=== PATIENT | male | born 1975 | race Caucasian/White ===

== ENCOUNTER → 2017-03-11 | Outpatient (CLI) | payer BC ==
[~2017-03-11] MED LIST: ASPI-781 PO; LAMO100T83 PO
--- NOTE | 2017-03-11 15:59 | RADRPT ---
PROCEDURE: XR Left Hip and pelvis. CLINICAL INDICATION: Left hip pain. Pelvic pain. TECHNIQUE: Two views. Frontal pelvis and lateral left hip. COMPARISON: 03/11/2016. FINDINGS: There has been open reduction and internal fixation of the right femur with a chante in the shaft and a locking screw proximally. There is a left hip total arthroplasty which appears satisfactory. Ther e is no fracture, dislocation, or loosening. There is no lytic or blastic lesion. The soft tissues are unremarkable. The upper pelvis is not included on the image. IMPRESSION: 1. Satisfactory postoperative appearance of the proximal right femur and left hip. RPTAT: QQ .Jewel Cm MD, MD Date Time Electronically viewed and signed by .Jewel Cm MD, MD on 03/11/2017 15:58 .R/
--- NOTE | 2017-03-11 16:06 | PN ---
Date/Time of Note Date/Time of Note DATE: 03/11/17 TIME: 16:01 Outpatient Progress Note Chief Complaint Annual follow-up status post left total hip replacement HPI 41-year-old male presents today for annual follow-up status post left total hip replacement performed on 10/04/2015. Patient was last seen on 03/11/2016. 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 Patient does have concerns however, as of the past 2 months he has been experiencing tingling, weakness and burning sensation to the lateral thigh/ buttock region and most recently to the groin region. At times he has complaints of weakness although he states that his strength is normal. He feels that he is unable to move his leg as he feels that it is weak but when he test his strength there is no limitation. Denies any falls. No supportive measures taken thus far. Review of Systems Const: No Fever, no chills, no Fatigue, normal appetite, no diaphoresis. Resp: No SOB, no wheezing, no chest pain. CV: No chest pain, no palpitaions, no VERNON. Physical Exam Blood pressure is 127/74, temperature is 98, pulse is 87, respiratory rate is 12, height is 5 foot 3 inches, weight is 140 pounds. General Appearance: well-developed, well-nourished, in no acute distress. Left hip: Patient has full range of motion with flexion, extension, abduction and adduction. 5/5 strength on resistance with flexion, extension, abduction and adduction. No tenderness to palpation. Normal sensory examination to light touch. No calf pain. Gait is normal and nonantalgic. Overall normal examination. Imaging X-ray of the left hip performed on 03/11/2017 showing all components appearing well aligned, attached and integrated to the bone. No signs of any lucency between metal and bone. Allergies Coded Allergies: No Known Allergy (Unverified , 10/03/15) Assessment/Plan * Normal x-ray on exam. * Normal physical examination * Symptoms seem to be neuropathic in etiology. Trial of gabapentin 300 mg 1 tab p.o. twice daily #60 provided for patient today. Patient advised to take 1 tablet for the first 3-4 days and if there is no significant side effects such as altered mental state, he may continue with twice a day. If symptoms improve patient was advised to follow-up with primary care for ongoing refills or with this office. If nerve symptoms continue, he was made aware that possible nerve conduction studies may be warranted to determine if there is any nerve injury. * Continue activities of daily living but at times of flareups, activity modifications were recommended. Anti-inflammatories as needed. * Follow-up as needed. Patient does have normal physical examination with no limitations or weakness. Medications Home Meds Active Scripts Aspirin* (Ecotrin*) 325 Mg Tabec, 325 MG PO BID for 45 Days Prov:ELIZABETH LUIS 10/07/15 Reported Medications Lamotrigine* (Lamictal*) 100 Mg Tablet, 200 MG PO DAILY, TAB 10/03/15 DEVAN VALLEJO PA-C March 11, 2017 16:06
== END | disposition home or self-care (01) ==
LOC: HKI 15:28
DX: Z47.89 Encounter for other orthopedic aftercare (principal); Z96.642 Presence of left artificial hip joint
CPT/HCPCS: 73502; G0463

== ENCOUNTER → 2019-01-30 | Outpatient (CLI) | payer BC ==
--- NOTE | 2019-01-30 17:38 | CONS ---
Assessment/Plan Assessment/Plan Hospital Course (Demo Recall) 43-year-old male 3.5 years status post anterior left total hip arthroplasty who presents with over a year of increasing groin and anterior femur pain. He does not have any signs or symptoms of infection. Concern for infection is low however still needs to be ruled out. Radiographs and symptoms are more concerning for aseptic loosening and/or possible stress fracture of the femur. At this time we will begin to rule out infection by obtaining a CBC with differential, ESR, CRP. If this is negative a three-phase bone scan will be ordered. The patient does not need to return to clinic for this order. He will be called with the results of his lab tests and the order will be placed and he will follow-up after the bone scan. However, if the workup for infection is positive he will return to clinic for further discussion regarding the next steps. The patient was advised if he has significant increase in pain with weightbearing he should become touchdown weightbearing and use crutches. Consultation Date/Type/Reason Admit Date/Time Date of Consultation: Jan 30, 2019 Reason for Consultation Left total hip pain Date/Time of Note DATE: 01/30/19 TIME: 17:25 Hx of Present Illness This is a 43-year-old male who presents to clinic today for left hip and groin pain. He is status post left total hip arthroplasty in [place] [address] Toro. He had an anterior approach. Patient states he initially did very well. However in 2017 he started to have increasing groin pain. It waxed and waned. However currently he is in 8/10 pain the pain is sharp and stabbing. It is in the groin and down the quadriceps. He is limping. Not using any gait aid. Nothing seems to make it better. The pain is a constant pain but is worsened with weightbearing and ambulation. Denies any fevers or chills. D enies any wound complications from surgery. Denies numbness and tingling. Denies any back pain. Patient denies fever, chills, shortness of breath, chest pain, nausea/vomiting, constipation, diarrhea, numbness, and tingling. Past Medical History Concussion Right femur fracture 2002 Home Meds Active Scripts Aspirin* (Ecotrin*) 325 Mg Tabec, 325 MG PO BID for 45 Days Prov:ELIZABETH LUIS 10/07/15 Reported Medications Lamotrigine* (Lamictal*) 100 Mg Tablet, 200 MG PO DAILY, TAB 10/03/15 Allergies: Coded Allergies: No Known Allergy (Unverified , 10/03/15) Past Surgical History IMN right femur fracture 2002 Left total hip arthroplasty October [address] Dr. Toro Family History Significant Family History: no pertinent family hx Social History Alcohol Use: heavy (1 drink a night) Smoking Status: Current some day smoker (Marijuana) Drug Use: marijuana Exam/Review of Systems Exam Vitals Weight: 140 pounds Height: 5 foot 3 inches Temperature: 98.4 Heart Rate: 89 Blood Pressure: 134/106 Respiratory Rate: 12 Exam General: Awake, alert, in no acute distress, pleasant and cooperative Heart: regular rhythm Lungs: breathing comfortably, no tachypnea or dyspnea Musculoskeletal: Well developed male in no apparent distress. Gait demonstrates antalgic components and no short leg component. Standing, the pelvis is level and supine there is no true leg length discrepancy. No tenderness to palpation over the trochanteric bursa or IT band. ----- Range of motion: Flexion: 120 Extension: 0 Internal rotation: 20 External rotation: 45 Abduction: 45 Adduction: 10 ----- Sitting there is no pelvic obliquity. Pain at the extremes of motion of the affected hip. Skin was intact throughout both lower extremities. Sensation intact to light touch in a sural, saphenous, deep peroneal, superficial peroneal, medial and lateral plantar nerve distribution. Neurovascular exam showed 5/5 strength in the abductors, quads, EHL/tibialis anterior/gastroc. Normal and symmetrical pulses were palpated in both the dorsalis pedis and posterior tibial arteries. There is no sign of venous stasis. Imaging Imaging Xrays obtained in clinic today and personally reviewed by myself: AP pelvis and AP/Lat of the left hip demonstrate hip s/p RINKU with hip reduced. Acetabular component is in good position. The femoral component is in good alignment. However compared to previous x-rays there is significant periosteal and cortical reaction around the stem. There is a pedestal. These findings are concerning for loosening even though there are no clearly identifiable diverging lucent lines. This reaction can also be seen in chronic stress fracture. No signs of wear, osteolysis, or fracture. ZHANNA PATINO MD Jan 30, 2019 17:37
--- NOTE | 2019-01-31 17:30 | RADRPT ---
PROCEDURE: XR Left Hip and pelvis. CLINICAL INDICATION: Left hip pain. Pelvic pain. Postop. TECHNIQUE: Three views. Frontal pelvis. Frontal and lateral left hip. COMPARISON: 03/11/2016. FINDINGS: There is no fracture or dislocation. The soft tissues are normal. There is a left hip total arthroplasty which appears satisfactory. There is a chante in the shaft of the right femur and a locking screw proximally extending through the r ight lesser trochanter. There is no lytic or blastic lesion. The pelvis is otherwise grossly normal. IMPRESSION: 1. Satisfactory postoperative appearance of the left hip. 2. Satisfactory postoperative appearance of the proximal right femur. 3. Otherwise unremarkable unremarkable study. RPTAT: QQ .Jewel Cm MD, MD Date Time Electronically viewed and signed by .Jewel Cm MD, on 01/31/2019 17:30 .R/
== END | disposition home or self-care (01) ==
LOC: HKI 15:51
PROVIDERS: ATTEND Orthopaedic Surgery Adult Reconstructive Orthopaedic Surgery
DX: M25.552 Pain in left hip (principal); Z96.642 Presence of left artificial hip joint; Z79.82 Long term (current) use of aspirin
CPT/HCPCS: 73502; G0463

== ENCOUNTER → 2019-02-09 | Outpatient (CLI) | payer BC | END | disposition home or self-care (01) | LOC: NUC 08:53 | PROVIDERS: ATTEND Orthopaedic Surgery Adult Reconstructive Orthopaedic Surgery | DX: M25.552 Pain in left hip (principal) | CPT/HCPCS: 78315; A9503 ==

== ENCOUNTER → 2019-02-20 | Outpatient (CLI) | payer BC ==
--- NOTE | 2019-02-20 16:31 | CONS ---
Consult Date/Type/Reason Admit Date/Time Initial Consult Date Date/Time of Note DATE: 02/20/19 TIME: 16:23 Subjective 43-year-old male follows up early today for his left hip secondary to acute increase in pain this past weekend. He was currently being worked up for aseptic loosening of his left total hip arthroplasty. Infection workup was negative. Bone scan and x-rays are consistent with loosening of the femoral stem. This past Wednesday he was not doing anything in particular but his groin and femur pain significantly increased to the point where he had difficulty bearing full weight. He went to the emergency department at [facility] to make sure there was not anything catastrophically wrong. There were no acute changes and is discharged home with pain medication. He started to use a cane. It is better today but the pain is much more persistent than it was during our first visit. Other than those changes there have been no further changes in his signs or symptoms. Objective Exam General: Awake, alert, in no acute distress, pleasant and cooperative Heart: regular rhythm Lungs: breathing comfortably, no tachypnea or dyspnea Musculoskeletal: Well developed male in no apparent distress. Gait demonstrates antalgic components and no short leg component. Standing, the pelvis is level and supine there is no true leg length discrepancy. No tenderness to palpation over the trochanteric bursa or IT band. ----- Range of motion: Flexion: 120 Extension: 0 Internal rotation: 20 External rotation: 45 Abduction: 45 Adduction: 10 ----- Sitting there is no pelvic obliquity. Pain at the extremes of motion of the aff ected hip. Skin was intact throughout both lower extremities. Sensation intact to light touch in a sural, saphenous, deep peroneal, superficial peroneal, medial and lateral plantar nerve distribution. Neurovascular exam showed 5/5 strength in the abductors, quads, EHL/tibialis anterior/gastroc. Normal and symmetrical pulses were palpated in both the dorsalis pedis and posterior tibial arteries. There is no sign of venous stasis. Results/Medications Home Meds Active Scripts Aspirin* (Ecotrin*) 325 Mg Tabec, 325 MG PO BID for 45 Days Prov:ELIZABETH LUIS 10/07/15 Reported Medications Lamotrigine* (Lamictal*) 100 Mg Tablet, 200 MG PO DAILY, TAB 12/3/15 Imaging Xrays obtained in clinic today and personally reviewed by myself: AP pelvis and AP/Lat of the left hip demonstrate hip s/p RINKU with hip reduced. Acetabular component is in good position. The femoral component is in varus alignment. Compared to immediate previous x-rays there has been no change. However compared to previous x-rays years ago there is significant periosteal and cortical reaction around the stem. There is a pedestal. These findings are concerning for loosening even though there are no clearly identifiable diverging lucent lines. This reaction can also be seen in chronic stress fracture. No signs of wear, osteolysis, or fracture. 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 There are no acute changes on x-ray. At this time he is having significantly more pain. We did discuss revision surgery today including possible need for extended trochanteric osteotomy. In addition to the standard risks for total hip arthroplasty we discussed other risks specific to revision surgery including increased risk of heterotopic bone ossification, dislocation/instability, infection, leg length discrepancy, injury to blood vessels and nerves, fracture. He understood these and wished to proceed with revision surgery. Plan: Plan for revision surgery Continue using gait aid. [place] () #30. patient instructed to use sparingly. Cures report was ran and was negative for any concern for narcotic or opiate abuse. preop clearance Follow-up for preop ZHANNA PATINO MD Feb 20, 2019 16:31
--- NOTE | 2019-02-21 16:22 | RADRPT ---
PROCEDURE: XR Left hip and pelvis. CLINICAL INDICATION: Left hip pain and pelvic pain. TECHNIQUE: 3 views. Frontal pelvis. Frontal and lateral left hip. COMPARISON: 01/30/2019. FINDINGS: There is no fracture or dislocation. The soft tissues are normal. There is a left hip total arthroplasty which appears satisfactory. There is a chante in the shaft of the right femur and a locking screw proximally extending through the r ight lesser trochanter. There is no lytic or blastic lesion. The pelvis is otherwise grossly normal. IMPRESSION: 1. Satisfactory postoperative appearance of the left hip. 2. Satisfactory postoperative appearance of the proximal right femur. 3. Otherwise unremarkable unremarkable study. 4. No change from 01/30/2019. RPTAT: QQ .Jewel Cm MD, Date Time Electronically viewed and signed by .Jewel Cm MD, on 02/21/2019 16:22 .R/
== END | disposition home or self-care (01) ==
LOC: HKI 13:46
PROVIDERS: ATTEND Orthopaedic Surgery Adult Reconstructive Orthopaedic Surgery
DX: Z47.1 Aftercare following joint replacement surgery (principal); Z96.642 Presence of left artificial hip joint
CPT/HCPCS: 73502; G0463

== ENCOUNTER → 2019-03-20 | Outpatient (CLI) | payer BC ==
--- NOTE | 2019-03-20 15:12 | CONS ---
Consult Date/Type/Reason Admit Date/Time Initial Consult Date Date/Time of Note DATE: 03/20/19 TIME: 15:05 Subjective 43-year-old male follows up today for preoperative appointment for left total hip arthroplasty revision. 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 His symptoms have increased in intensity but has not changed in location or characteristic. Denies numbness and tingling. Denies fevers and chills. Objective Vitals Weight: 140 pounds Height: 5 foot 3 inches Temperature: 90.6 Heart Rate: 70 Blood Pressure: 140/73 Respiratory Rate: 12 Exam General: Awake, alert, in no acute distress, pleasant and cooperative Heart: regular rhythm Lungs: breathing comfortably, no tachypnea or dyspnea Musculoskeletal: Well developed male in no apparent distress. Gait demonstrates antalgic components and no short leg component. Standing, the pelvis is level and supine there is no true leg length discrepancy. No tenderness to palpation over the trochanteric bursa or IT band. ----- Range of motion: Flexion: 120 Extension: 0 Internal rotation: 20 External rotation: 45 Abduction: 45 Adduction: 10 ----- Sitting there is no pelvic obliquity. Pain at the extremes of motion of the affected hip. Skin was intact throughout both lower extremities. Sensation intact to light touch in a sural, saphenous, deep peroneal, superficial peroneal, medial and lateral plantar nerve distribution. Neurovascular exam showed 5/5 strength in the abductors, quads, EHL/tibialis anterior/gastroc. Normal and symmetrical pulses were palpated in both the dorsalis pedis and posterior tibial arteries. There is no sign of venous stasis. Results/Medications Home Meds Active Scripts Aspirin* (Ecotrin*) 325 Mg Tabec, 325 MG PO BID for 45 Days Prov:ELIZABETH LUIS 10/07/15 Reported Medications Lamotrigine* (Lamictal*) 100 Mg Tablet, 200 MG PO DAILY, TAB 10/03/15 Assessment/Plan Hospital Course (Demo Recall) The patient has aseptic loosening of the femoral component of the left total hip arthroplasty. Significant amount of time was spent discussing revision surgery including increased risk of infection, instability, neurovascular injury, fracture, and other complications. Was also discussed that he will likely need an extended greater trochanteric osteotomy to remove the femoral prosthesis. Discussed that this will likely change his weightbearing status postoperatively. Medical Clearance pending. ----- A lengthy discussion was held, where the patient was told that if and when the symptoms are intolerable, elective revision total hip replacement should be considered. The operative procedure was explained using diagrams and/or three-dimensional models. The rehabilitation, the potential risks, benefits and alternatives were discussed at length. Specific risks discussed included but were not limited to excessive blood loss and the need for transfusion and therefore the risk of transmissible disease or transfusion reaction, deep infection and the potential need for repetitive debridements, implant removal, long-term antibiotic therapy, possibly requiring deep venous access, leg-length discrepancy, dislocation, possibly recurrent, with the need for closed versus open reduction, bracing, femoral or acetabular fracture and the need for further surgery for fixation, neurovascular injury with temporary or permanent numbness, tingling, weakness or paralysis, deep venous thrombosis, pulmonary embolism and , persistent pain, weakness, or limp, late aseptic loosening and the need for revision, polyethylene wear-induced osteolysis and related problems, and finally, a wide variety of unanticipated medical problems. The opportunity to ask questions and address any concerns was provided. The patient would like to proceed with scheduling. Face to Face Evaluation For Home Health Care: This is to certify that after date of planned surgery patient will be in need of intermittent care home care, physical therapy and/or occupational therapy as patient will be home bound. This patient is under my care and I have authorized the services on this plan of care and will periodically review the plan. Plan: Left Revision RINKU. If no ETO is needed, will plan on S-ROM. If ETO is needed, Depuy Reclaim VTE risk stratification: Average VTE prophylaxis: ASA 81 mg twice daily x6 weeks Diabetes management: None Pain control: Standard Telemetry: No MRSA: Pending ZHANNA PATINO MD March 20, 2019 15:12
== END | disposition home or self-care (01) ==
LOC: HKI 13:13
PROVIDERS: ATTEND Orthopaedic Surgery Adult Reconstructive Orthopaedic Surgery
DX: Z01.818 Encounter for other preprocedural examination (principal); T84.031A Mechanical loosening of internal left hip prosthetic joint, initial encounter; Y83.8 Other surgical procedures as the cause of abnormal reaction of the patient, or of later complication, without mention of misadventure at the time of the procedure
CPT/HCPCS: G0463

== ENCOUNTER 2019-03-31 08:00 | Inpatient (IN) | payer BC ==
[~2019-03-31] VITALS: Ht 160 cm; Wt 65.4 kg
[~2019-03-31 08:00] MED LIST changes: +ACETAMINOPHEN 500 MG TAB PO ONE; +CEFAZOLIN 2 GM/50 ML (PMX) 50 ML IVPB ONE; +CELECOXIB 200 MG CAP PO ONE; +GABAPENTIN 300 MG CAP PO ONE; +LACTATED RINGER'S 1,000 ML IV SCH; +LANSOPRAZOLE 30 MG CAP PO ONE; +ONDANSETRON 4 MG INJ IV ONE; +TRANEXAMIC ACID 1GM/100ML(PMX) 100 ML AT CLOSING IVPB ONE; +TRANEXAMIC ACID 1GM/100ML(PMX) 100 ML PRE-OP IVPB ONE
[2019-04-18] VITALS (26 sets, daily range): BP systolic 101–133; BP diastolic 54–84; PULSE 65–92; RESP 13–21; Ht 160 cm; Wt 65.4 kg
[2019-04-18] MEDS ORDERED: ACETAMINOPHEN 500 MG TAB PO ONE (06:00)
[2019-04-18] MEDS ORDERED: ONDANSETRON 4 MG INJ IV ONE (06:00)
[2019-04-18] MEDS ORDERED: CEFAZOLIN 2 GM/50 ML (PMX) 50 ML IVPB ONE (06:00)
[2019-04-18] MEDS ORDERED: TRANEXAMIC ACID 1GM/100ML(PMX) 100 ML PRE-OP IVPB ONE (06:00)
[2019-04-18] MEDS ORDERED: LACTATED RINGER'S 1,000 ML IV SCH (06:00)
[2019-04-18] MEDS ORDERED: GABAPENTIN 300 MG CAP PO ONE (06:00)
[2019-04-18] MEDS ORDERED: CELECOXIB 200 MG CAP PO ONE (06:00)
[2019-04-18] MEDS ORDERED: LANSOPRAZOLE 30 MG CAP PO ONE (06:00)
[2019-04-18] MEDS ORDERED: DESFLURANE 15 MIN ONE (07:00)
--- NOTE | 2019-04-18 07:09 | HPN ---
Date/Time of Note Date/Time of Note DATE: 04/18/19 TIME: 07:08 Interval H&P Admission Note Pt. seen H&P reviewed: No system changes Patient denies fever, chills, shortness of breath, chest pain, nausea/vomiting, constipation, diarrhea, numbness, and tingling. MUSCULOSKELETAL: Left extremity Skin intact. Well-healed scar over the proximal anterior lateral thigh. Sensation intact to light touch in a sural, saphenous, deep peroneal, superficial peroneal, medial and lateral plantar nerve distribution. Motor is intact, patient able to dorsiflex and plantarflex ankle and extend and flex great toe. Dorsalis Pedis pulse +2, Brisk capillary refill. Compartments are soft. Calves non-tender to palpation bilaterally. ZHANNA PATINO MD Apr 18, 2019 07:09
[2019-04-18] MEDS ORDERED: TOBRAMYCIN 1.2 GM POWDER ONE (07:11)
[2019-04-18] MEDS ORDERED: VANCOMYCIN 1 GM INJ ONE (07:11)
--- NOTE | 2019-04-18 07:33 | PREAC ---
Date/Time of Note Date/Time of Note DATE: 04/18/19 TIME: 07:32 Anesthesia Eval and Record Evaluation Time Pre-Procedure Interview DATE: 04/18/19 TIME: 07:32 Age 43 Sex male NPO: 8 hrs Preoperative diagnosis total left hip revision Planned procedure total left hip revision Past Medical History Past Medical History: Includes Psych: Bipolar Surgery & Anesthesia Issues No known issue Meds Anticoagulation: No Beta Rebeca within 24 hr: No Reason Beta Rebeca not given: Pt. not on B-Rebeca Reported Medications Lamotrigine* (Lamictal*) 100 Mg Tablet, 200 MG PO DAILY, TAB 10/03/15 Discontinued Scripts Aspirin* (Ecotrin*) 325 Mg Tabec, 325 MG PO BID for 45 Days Prov:LUISELIZABETH ZENDEJAS 10/07/15 Current Medications Lactated Ringer's 1,000 ml @ 125 mls/hr Q8H IV Last administered on 04/18/19at 06:37; Admin Dose 125 MLS/HR; Start 04/18/19 at 06:00; Stop 04/18/19 at 13:59 Ropivacaine/ Clonidine HCl/ Epinephrine/ Ketorolac Tromethamine/ Sodium Chloride INTRA-OP INJ ; Start 04/18/19 at 06:00; Stop 04/18/19 at 18:00 Meds reviewed: Yes Allergies Coded Allergies: pecan nut (Verified Allergy, Unknown, sob,rash,throat swelling, 04/18/19) walnut (Verified Allergy, Unknown, sob,rash,throat swelling, 04/18/19) Allergies Reviewed: Yes Labs/Studies Labs Reviewed: Reviewed by anesthesiologist Blood Bank Test 04/18/19 06:19 Blood Product Summary Counts test: N/A Pre-procedure Exam Last vitals Vital Signs Date Temp Pulse Resp B/P (MAP) Pulse Ox O2 O2 Flow FiO2 Time Delivery Rate 04/18/19 98.3 69 18 123/79 99 Room Air 06:44 (94) Airway: Adequate mouth opening, Adequate thyromental dist Mallampati: Mallampati I Teeth: Normal Lung: Normal Heart: Normal ASA Physical Status ASA physical status: 2 Emergency: None Pre-operative Attestations Prior to commencing anesthesia and surgery, the patient was re-evaluated, there was verification of: *The patient's identity *The results of appropriate recent lab work and preoperative vital signs *The above evaluation not changing prior to induction *Anesthetic plan, risk benefits, alternative and complications discussed with patient/family; questions answered; patient/family understands, accepts and wishes to proceed. AUGUSTUS NYE DO Apr 18, 2019 07:33
[2019-04-18] MEDS ORDERED: MIDAZOLAM 1 MG/ML 2 ML INJ ONE (07:36)
[2019-04-18] MEDS ORDERED: PROPOFOL 20 ML ONE (07:36)
[2019-04-18] MEDS ORDERED: FENTAnyl 50 MCG/ML VIAL ONE (07:36)
[2019-04-18] MEDS ORDERED: LIDOCAINE 1% (MDV) 20 ML INJ ONE (07:36)
[2019-04-18] MEDS ORDERED: GLYCOPYRROLATE 0.4 MG INJ ONE (07:36)
[2019-04-18] MEDS ORDERED: HYDROmorphONE 1 MG/5 ML IV SYRINGE IV PRN ×5 (08:00→13:30)
[2019-04-18] MEDS ORDERED: DEXAMETHASONE 4 MG/ML 5 ML INJ ONE (08:27)
[2019-04-18] MEDS ORDERED: ROCURONIUM 50 MG INJ ONE ×3 (08:28→10:55)
[2019-04-18] MEDS: TRANEXAMIC ACID 1GM/100ML(PMX) 100 ML ONE ×2 (08:30→09:47)
[2019-04-18] MEDS: TRANEXAMIC ACID 1GM/100ML(PMX) 100 ML AT CLOSING IVPB ONE ×3 (09:48→12:29)
[2019-04-18] MEDS ORDERED: CEFAZOLIN 1 GM INJ ONE (10:56)
[2019-04-18] MEDS ORDERED: ONDANSETRON 4 MG INJ ONE (12:35)
[2019-04-18] MEDS ORDERED: ROPIVACAINE 0.5 % 30 ML VIAL ONE (12:40)
[2019-04-18] MEDS ORDERED: ROPIVACAINE 0.2% 20 ML VIAL ONE (12:43)
[2019-04-18] MEDS ORDERED: SUGAMMADEX SODIUM 200 MG/2 ML VIAL IV ONE (12:56)
[2019-04-18] MEDS ORDERED: BISACODYL 10 MG SUPP PR PRN (13:00)
[2019-04-18] MEDS ORDERED: oxyCODONE 5 MG TAB PO PRN (13:00)
[2019-04-18] MEDS ORDERED: NALOXONE (0.4 MG/ML) INJ IV PRN (13:00)
[2019-04-18] MEDS ORDERED: BETHANECHOL 25 MG TAB PO PRN (13:00)
[2019-04-18] MEDS ORDERED: MAGNESIUM HYDROXIDE 30ML CUP PO PRN (13:00)
[2019-04-18] MEDS ORDERED: DIPHENHYDRAMINE 50 MG INJ IV PRN (13:00)
[2019-04-18] MEDS ORDERED: NACL 0.9% 3 ML SYG IV SCH (13:00)
[2019-04-18] MEDS ORDERED: DOCUSATE SODIUM 100 MG CAP PO ONE (13:00)
[2019-04-18] MEDS ORDERED: NA PHOSPHATE/BIPHOS 133 ML ENEMA PR PRN (13:00)
[2019-04-18] MEDS ORDERED: SENNA/DOCUSATE NA (8.6MG/50MG) TAB PO PRN (13:00)
[2019-04-18] MEDS ORDERED: HYDROmorphONE 1 MG/5 ML IV SYRINGE IV ONE (13:26)
[2019-04-18] MEDS ORDERED: OXYCODONE/ACETAMINOPHEN (5/325) TAB PO PRN ×2 (13:30)
[2019-04-18] MEDS ORDERED: ONDANSETRON 4 MG INJ IV PRN (13:30)
[2019-04-18] MEDS ORDERED: FENTAnyl 50 MCG/ML VIAL IV PRN ×3 (13:30)
[2019-04-18] MEDS: CEFAZOLIN 2 GM/50 ML (PMX) 50 ML IVPB SCH ×2 (14:01→20:31)
[2019-04-18] MEDS: HYDROmorphONE 1 MG/5 ML IV SYRINGE IV PRN ×3 (14:01→14:19)
[2019-04-18] MEDS: ACETAMINOPHEN 500 MG TAB PO SCH ×2 (14:06→22:00)
[2019-04-18] MEDS: LACTATED RINGER'S 1,000 ML IV SCH (14:09)
--- NOTE | 2019-04-18 15:43 | OPR ---
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 Postoperative Diagnosis As above Operation/Procedure Performed Revision left total hip arthroplasty femoral component, head, and liner Surgeon see signature line Derrick Man Brenton Witt Second Derrick Man: EFREM ALCANTARA Anesthesia Type: general, spinal Estimated Blood Loss: 200 - 250 ml's Transfusion none Specimen Synovial fluid cell count, aerobic, anaerobic cultures Femoral canal tissue aerobic, anaerobic, fungal cultures Acetabular tissue aerobic, anaerobic, fungal cultures Explant: Depuy [place] poly liner 48/32mm +4mm Depuy femoral head: 32mm+1mm ceramic Depuy [place] Size 8 no collar Grafts/Implants Implant: DePuy: Polyethylene Size: [place] poly liner 48/32mm neutral Femoral stem: [place] press-fit size 4, high offset Femoral head: 32 +1 mm ceramic. 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 SURGICAL PROCEDURE: Revision left total hip arthroplasty of femoral component, head, and liner INDICATIONS: The patient is a 43 year-old man with an orthopaedic history significant for progressively worsening anterior thigh and start up pain. He had a left total hip arthroplasty done through the anterior approach in October 2015 by another surgeon. He had a [place] stem in place. When he presented to clinic there was concern based on physical examination, history, x-rays that the stem was loose. An infection work-up was done and was negative. Three-phase bone scan was consistent with loosening. The patient's pain continued to become more severe and required gait aids to ambulate. At this time I recommended to the patient to undergo revision surgery to explant the loose femoral stem and implant the new stem to obtain bony ingrowth. As discussed with the patient that even though the infection work-up was negative it is possible that there is an undetectable infection. He understood this. In addition I stressed that there is a good chance that he may need an extended greater trochanteric osteotomy to explant the femoral stem. INFORMED CONSENT: The operative procedure was explained using diagrams and/or three-dimensional models. The rehabilitation, the potential risks, benefits and alternatives were discussed at length. Specific risks discussed included but were not limited to excessive blood loss and the need for transfusion and therefore the risk of transmissible disease or transfusion reaction, deep infection and the potential need for repetitive debridements, implant removal, long-term antibiotic therapy, possibly requiring deep venous access, leg-length discrepancy, dislocation, possibly recurrent, with the need for closed versus open reduction, bracing, femoral or acetabular fracture and the need for further surgery for fixation, neurovascular injury with temporary or permanent numbness, tingling, weakness or paralysis, deep venous thrombosis, pulmonary embolism and , persistent pain, weakness, or limp, late aseptic loosening and the need for revision, polyethylene wear-induced osteolysis and related problems, and finally, a wide variety of unanticipated medical problems. The opportunity to ask questions and address any concerns was provided. The patient wished to proceed. FINDINGS: The femoral stem was grossly loose. There were no signs of infection. Tissues were in good condition. SURGERY IN DETAIL: The patient was taken into the Operating Room and placed supine on the operating table. Preoperatively, they were administered Ancef. They were administered spinal and general anesthesia by the Anesthesia Department. The patient was placed on an [facility] Lateral Positioner in a right lateral decubitus position with the left hip superior. An axillary roll was placed, all pressure points were confirmed padded. The left hip region was prepped and draped in sterile fashion. A surgical pause was performed, correctly identifying the patient's name, the correct medical record number, the correct diagnosis, correct surgical procedure, and the correct extremity. 1g of tranexamic acid was dosed at the time of incision A posterolateral skin incision, approximately 15-20 cm in length was made, centered over the greater trochanter, skin and subcutaneous tissue sharply dissected. Deep fascial layer was identified and incised in line with the skin incision. Gluteus medius was retracted anteriorly. An 18-gauge needle was used to aspirate 5 mL of synovial fluid. The fluid was clear and yellow with some blood. This was sent for stat cell count and aerobic and anaerobic culture. The short external rotators and capsule were scarred in and were not in separate tissue planes despite the fact that his previous surgery was done to the anterior approach. Short external rotators and capsule in one tissue plane were subperiosteally incised from the posterior distal femur at the level of the lesser trochanter to the proximal femur. Scar and fibrous soft tissue were sharply excised from around the femoral neck. Once 270 degrees of the femoral neck and head were visible the hip was dislocated. The hip was quite tight and the femur could not be mobilized. Therefore further subperiosteal dissection of the quadratus for Tom and part of the gluteus sandy insertion onto the femur was taken down. At this time a femoral neck elevator was used to present the proximal femur. A bone tamp was used to try to disengage the femoral head from the trunnion. However while attempting to disengage the ceramic femoral head the entire prosthesis became grossly loose and was pulled out. There is no signs of infection. There is no fracture. There was no bony on growth onto the femoral stem. At this time tissue from the femoral canal was sent for aerobic, anaerobic, fungal culture. At this time a straight size 0 [place] reamer was used to sound the femoral canal. The previously appreciated pedestal on x-ray was sounded. This was then opened up using solution reamer drills increase in the size sequentially. X-ray confirmed that no perforation of the femur was done with the drill. Sequential reaming to a size 3 [place] was performed. This was followed by broaching. However only a size 1 broach could fit. There was suspicion that the stem was in significant varus. X-ray confirmed that the stem was in significant varus secondary to lack of lateralization in the greater trochanter but more importantly narrowing and abnormal geometry of the proximal femoral canal. A bur both 5 mm and 9 mm in diameter was used to lateralize and scope the proximal femur in order to fit the geometry of the [place] stem. After significant time was spent doing this the femur was able to be reamed and broached up to a size 4. The size 4 broach did sit proud. However this was intended in order to gain the appropriate length of the hip. Another x-ray was taken to confirm that the fit was good and the stem was out of varus. A high offset neck was used for this x-ray in the office that was noted to be quite good and would be near identical once the +4 poly-was switched out for a neutral poly-. The hips were equal in length as well on x-ray. At this time the hip was dislocated with the assistance of bone hook. The neck and head were removed. The broach was left in place to support the femur. The femur was retracted anteriorly to expose the acetabulum. Significant time was spent exposing the interface of the poly-with the cup in order to probably explant and reimplant a new polyethylene. There was some bony overgrowth posteriorly which made that exposure more difficult. Comminution of curette, the scalpel Bovmg was used to excise tissue around the poly-. The poly-was easily extracted using the screw technique. At this time a another culture was taken from within the acetabular component this was sent for aerobic, anaerobic, fungal culture. The cup was well fixed. A cup was well-positioned. A neutral trial liner was placed. The hip was reduced with a high offset neck and 32+1 mm head. Range of motion and stability were quite good, including forward flexion to greater than 90 degrees, internal rotation greater than 70 degrees at 90 degrees flexion, internal rotation greater than 70 degrees with the hip adducted and at 45 degrees of flexion. External Rotation was also tested, and was stable with no impingement or instability at full extension and 30 degrees external rotation. [place]at sign was 50 degrees. Intraoperative x-ray revealed the hip to have satisfactory position of all components. The hip was dislocated in controlled manner using a bone hook and the trial components removed. Local anesthetic was injected periarticular. A formal 48/32 mm neutral polyethylene was inserted into the cup, confirmed seated and locked. About 3 to 4 mL of stimulan beads were placed down the femoral canal. On the femoral side, a [place] size 4 high offset stem was inserted. A 32 +1 mm ceramic head was inserted onto the taper. The hip was reduced. One final time range of motion, stability, and soft tissue tension were satisfactory. The wound was thoroughly irrigated. 1g of tranexamic acid was dosed. The arthrotomy and short external rotators were reattached to the gluteus medius at the level the greater trochanter. The remainder of the Stimulan beads for total of 10 mL were placed inside the joint space. The deep fascial layer was closed with 1 Vicryl in a [id number], interrupted fashion, deep subcutaneous tissues irrigated and closed with 0 Vicryl interrupted fashion, subcutaneous tissues irrigated, closed with 2-0 Vicryl in an inverted, interrupted fashion. The skin was closed with timbo. A sterile dressing was applied, abduction pillow was placed between the legs, and the patient was transferred to a supine position. Postoperative clinical leg lengths, rotation of limb were neutral and symmetric. All Counts were correct x2 DISPOSITION: Patient transferred to PACU in stable condition. The patient will be weight bearing as tolerated on the operative extremity. PT will begin POD#0 if available. Posterior hip precautions for 3 months with an abduction pillow. Postoperative AP pelvis will be ordered in PACU. Bilateral knee high SCDs will be worn while admitted. ASA 81mg BID will be given for DVT prophylaxis for 6 weeks. Pain will be controlled with medication. The patient will follow up in clinic in approximately 2 weeks. Explant: Depuy [place] poly liner 48/32mm +4mm Depuy femoral head: 32mm+1mm ceramic Depuy [place] Size 8 no collar Implant: DePuy: Polyethylene Size: [place] poly liner 48/32mm neutral Femoral stem: [place] press-fit size 4, high offset Femoral head: 32 +1 mm ceramic. Stimulan Beads 10mL with 1g of vancomycin and 1.2g Tobramycin ZHANNA PATINO MD Apr 18, 2019 15:37
[2019-04-18] MEDS: HYDROmorphONE 1 MG/ML SYG IV PRN ×3 (16:47→22:55)
[2019-04-18] MEDS: oxyCODONE 5 MG TAB PO PRN ×2 (18:11→22:11)
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
--- NOTE | 2019-04-18 18:48 | CONS ---
Assessment/Plan Assessment/Plan Problems: (1) History of revision of total replacement of left hip joint Onset Date: ~ 04/18/2019 Status: Acute Comment: Cooperative and stable and doing well, continue standard pre- postoperative care (2) Bipolar 2 disorder Status: Chronic Comment: Stable on medical therapy (3) Hemorrhoids Status: Chronic Comment: Noted. Qualifiers: Qualified Codes: K64.1 - Second degree hemorrhoids Consultation Date/Type/Reason Admit Date/Time Apr 18, 2019 at 05:32 Date of Consultation: Apr 18, 2019 Type of Consult Internal medicine Reason for Consultation Assistance with postoperative care after left hip revision of arthroplasty Requesting Provider: ZHANNA PATINO MD Date/Time of Note DATE: 04/18/19 TIME: 18:33 Hx of Present Illness Mac 43-year-old gentleman brought in electively for revision of the left hip replacement. At this time he is seen postoperatively and without complaints Constitutional: no complaints (No fevers chills or sweats) Eyes: no complaints ENT: no complaints Respiratory: no complaints (No cough no wheezing no shortness of breath no pleurisy) Cardiovascular: no complaints (No chest pain no palpitations) Gastrointestinal: no complaints Genitourinary: no complaints Musculoskeletal: other (Starting to feel some pain at the surgical site) Skin: no complaints Neurologic: no complaints Past Medical History Medical History: other (Bipolar 2 d/o) Home Meds Reported Medications Lamotrigine* (Lamictal*) 100 Mg Tablet, 200 MG PO DAILY, TAB 10/03/15 Discontinued Scripts Aspirin* (Ecotrin*) 325 Mg Tabec, 325 MG PO BID for 45 Days Prov:ELIZABETH LUIS 10/07/15 Medications Current Medications Lactated Ringer's 1,000 ml @ 80 mls/hr [id number] IV Last administered on 04/18/19at 14:09; Admin Dose 80 MLS/HR; Start 04/18/19 at 12:59 Oxycodone HCl (Roxicodone) 15 mg Q4H PRN PO .PAIN; Start 04/18/19 at 13:00 Oxycodone HCl (Roxicodone) 10 mg Q4H PRN PO .PAIN Last administered on 04/18/19at 18:11; Admin Dose 10 MG; Start 04/18/19 at 13:00 Oxycodone HCl (Roxicodone) 5 mg Q4H PRN PO .PAIN; Start 04/18/19 at 13:00 Hydromorphone HCl (Dilaudid) 1 mg Q3H PRN IV .BREAKTHROUGH PAIN Last administered on 04/18/19at 16:47; Admin Dose 1 MG; Start 04/18/19 at 13:00 Acetaminophen (Tylenol Tab) 1,000 mg Q8 PO Last administered on 04/18/19at 14:06; Admin Dose 1,000 MG; Start 04/18/19 at 14:00 Ondansetron HCl (Zofran Inj) 4 mg Q4H PRN IV NAUSEA/VOMITING; Start 04/19/19 at 13:00 Cefazolin Sodium/ Dextrose 50 ml @ 100 mls/hr Q8H IVPB Last administered on 04/18/19at 14:01; Admin Dose 100 MLS/HR; Start 04/18/19 at 13:30; Stop 04/19/19 at 05:59 Gabapentin (Neurontin) 300 mg QHS PO ; Start 04/18/19 at 21:00 Pantoprazole (Protonix Tab) 40 mg DAILY@06 PO ; Start 04/19/19 at 06:00 Docusate Sodium (Colace) 200 mg BID PO ; Start 04/19/19 at 09:00; Stop 04/21/19 at 21:01 Simethicone (Mylicon) 80 mg TID PRN PO .GAS; Start 04/18/19 at 13:00 Senna/Docusate Sodium (Senokot-S) 2 tab BID PRN PO .CONSTIPATION; Start 04/18/19 at 13:00 Magnesium Hydroxide (Milk Of Mag) 30 ml HS PRN PO .CONSTIPATION; Start 04/18/19 at 13:00 Bisacodyl (Dulcolax Supp) 10 mg DAILY PRN [place] .CONSTIPATION; Start 04/18/19 at 13:00 Sodium Biphosphate/ Sodium Phosphate (Fleet Enema) 133 ml DAILY PRN NE .CONSTIPATION; Start 04/18/19 at 13:00 Diphenhydramine HCl (Benadryl) 25 mg Q4H PRN IV .ITCHING; Start 04/18/19 at 13:00 Naloxone HCl (Narcan) 0.2 mg Q2M PRN IV .RESP RATE; Start 04/18/19 at 13:00 IV Flush (NS 3 ml) 3 ml per protocol IV ; Start 04/18/19 at 13:00 Bethanechol Chloride (Urecholine) 25 mg URINARY CATH D/C PRN PO UNABLE TO VOID; Start 04/18/19 at 13:00 Aspirin (Halfprin) 81 mg BID PO ; Start 04/19/19 at 09:00 Hydromorphone HCl (Dilaudid) 0.2 mg PACU PRN IV MILD PAIN 1-3; Start 04/18/19 at 13:30; Stop 04/18/19 at 19:00 Hydromorphone HCl (Dilaudid) 0.4 mg PACU PRN IV MOD PAIN 4-6 Last administered on 04/18/19at 14:07; Admin Dose 0.4 MG; Start 04/18/19 at 13:30; Stop 04/18/19 at 19:00 Hydromorphone HCl (Dilaudid) 0.6 mg PACU PRN IV SEVERE PAIN 7-10; Start 04/18/19 at 13:30; Stop 04/18/19 at 19:00 Fentanyl (Sublimaze) 25 mcg PACU ORDER PRN IV MILD PAIN 1-3; Start 04/18/19 at 13:30; Stop 04/18/19 at 19:00 Fentanyl (Sublimaze) 50 mcg PACU ORDER PRN IV MOD PAIN 4-6; Start 04/18/19 at 13:30; Stop 04/18/19 at 19:00 Fentanyl (Sublimaze) 75 mcg PACU ORDER PRN IV SEVERE PAIN 7-10; Start 04/18/19 at 13:30; Stop 04/18/19 at 19:00 Oxycodone/ Acetaminophen (Percocet (5/ 325)) 1 tab PACU ORDER PRN PO .PAIN 1-5; Start 04/18/19 at 13:30; Stop 04/18/19 at 19:00 Oxycodone/ Acetaminophen (Percocet (5/ 325)) 2 tab PACU ORDER PRN PO .PAIN 6-10; Start 04/18/19 at 13:30; Stop 04/18/19 at 19:00 Ondansetron HCl (Zofran Inj) 4 mg PACU ORDER PRN IV NAUSEA/VOMITING Last administered on 04/18/19at 14:00; Admin Dose 4 MG; Start 04/18/19 at 13:30; Stop 04/18/19 at 19:00 Lamotrigine (Lamictal) 200 mg DAILY PO ; Start 04/19/19 at 09:00 Allergies: Coded Allergies: pecan nut (Verified Allergy, Unknown, sob,rash,throat swelling, 04/18/19) walnut (Verified Allergy, Unknown, sob,rash,throat swelling, 04/18/19) Past Surgical History Past Surgical Hx: other (Right meniscal/R ACL surgery in 1993, R shoulder labrum and rotator cuff 1998, R femur ORIF 2002, L RINKU 2014) Family History Significant Family History: heart disease, diabetes Social History Alcohol Use: occasionally Smoking Status: Never smoker Drug Use: marijuana Exam/Review of Systems Exam Vitals Vital Signs Date Temp Pulse Resp B/P (MAP) Pulse Ox O2 O2 Flow FiO2 Time Delivery Rate 04/18/19 91 18 120/56 96 Room Air 18:00 (77) 04/18/19 98.0 15:00 Constitutional: alert, oriented Neck: supple, non-tender Respiratory: clear to auscultation, normal air movement Cardiovascular: regular rate and rhythm, nl pulses Gastrointestinal: soft, nl liver, spleen, non-tender Extremities: normal pulses 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, nl mental status, nl speech, nl strength Results Results 24hrs Laboratory Tests Test 04/18/19 09:15 Synovial Fluid Source HIP FLUID Synovial Fluid Color RED Synovial Fluid Appearance CLOUDY Synovial Fluid Volume 1.0 Synovial Fluid WBC 1147 H Synovial Fluid Polynuclear WBCs % 43.3 H Synovial Fluid Mononuclear WBCs % 56.7 Synovial Fluid Crystals NO CRYSTALS SEEN Medications Medication Current Medications Lactated Ringer's 1,000 ml @ 80 mls/hr [id number] IV Last administered on 04/18/19at 14:09; Admin Dose 80 MLS/HR; Start 04/18/19 at 12:59 Oxycodone HCl (Roxicodone) 15 mg Q4H PRN PO .PAIN; Start 04/18/19 at 13:00 Oxycodone HCl (Roxicodone) 10 mg Q4H PRN PO .PAIN Last administered on 04/18/19at 18:11; Admin Dose 10 MG; Start 04/18/19 at 13:00 Oxycodone HCl (Roxicodone) 5 mg Q4H PRN PO .PAIN; Start 04/18/19 at 13:00 Hydromorphone HCl (Dilaudid) 1 mg Q3H PRN IV .BREAKTHROUGH PAIN Last administered on 04/18/19at 16:47; Admin Dose 1 MG; Start 04/18/19 at 13:00 Acetaminophen (Tylenol Tab) 1,000 mg Q8 PO Last administered on 04/18/19at 14:06; Admin Dose 1,000 MG; Start 04/18/19 at 14:00 Ondansetron HCl (Zofran Inj) 4 mg Q4H PRN IV NAUSEA/VOMITING; Start 04/19/19 at 13:00 Cefazolin Sodium/ Dextrose 50 ml @ 100 mls/hr Q8H IVPB Last administered on 04/18/19at 14:01; Admin Dose 100 MLS/HR; Start 04/18/19 at 13:30; Stop 04/19/19 at 05:59 Gabapentin (Neurontin) 300 mg QHS PO ; Start 04/18/19 at 21:00 Pantoprazole (Protonix Tab) 40 mg DAILY@06 PO ; Start 04/19/19 at 06:00 Docusate Sodium (Colace) 200 mg BID PO ; Start 04/19/19 at 09:00; Stop 04/21/19 at 21:01 Simethicone (Mylicon) 80 mg TID PRN PO .GAS; Start 04/18/19 at 13:00 Senna/Docusate Sodium (Senokot-S) 2 tab BID PRN PO .CONSTIPATION; Start 04/18/19 at 13:00 Magnesium Hydroxide (Milk Of Mag) 30 ml HS PRN PO .CONSTIPATION; Start 04/18/19 at 13:00 Bisacodyl (Dulcolax Supp) 10 mg DAILY PRN NE .CONSTIPATION; Start 04/18/19 at 13:00 Sodium Biphosphate/ Sodium Phosphate (Fleet Enema) 133 ml DAILY PRN NE .CONSTIPATION; Start 04/18/19 at 13:00 Diphenhydramine HCl (Benadryl) 25 mg Q4H PRN IV .ITCHING; Start 04/18/19 at 13:00 Naloxone HCl (Narcan) 0.2 mg Q2M PRN IV .RESP RATE; Start 04/18/19 at 13:00 IV Flush (NS 3 ml) 3 ml per protocol IV ; Start 04/18/19 at 13:00 Bethanechol Chloride (Urecholine) 25 mg URINARY CATH D/C PRN PO UNABLE TO VOID; Start 04/18/19 at 13:00 Aspirin (Halfprin) 81 mg BID PO ; Start 04/19/19 at 09:00 Hydromorphone HCl (Dilaudid) 0.2 mg PACU PRN IV MILD PAIN 1-3; Start 04/18/19 at 13:30; Stop 04/18/19 at 19:00 Hydromorphone HCl (Dilaudid) 0.4 mg PACU PRN IV MOD PAIN 4-6 Last administered on 04/18/19at 14:07; Admin Dose 0.4 MG; Start 04/18/19 at 13:30; Stop 04/18/19 at 19:00 Hydromorphone HCl (Dilaudid) 0.6 mg PACU PRN IV SEVERE PAIN 7-10; Start 04/18/19 at 13:30; Stop 04/18/19 at 19:00 Fentanyl (Sublimaze) 25 mcg PACU ORDER PRN IV MILD PAIN 1-3; Start 04/18/19 at 13:30; Stop 04/18/19 at 19:00 Fentanyl (Sublimaze) 50 mcg PACU ORDER PRN IV MOD PAIN 4-6; Start 04/18/19 at 13:30; Stop 04/18/19 at 19:00 Fentanyl (Sublimaze) 75 mcg PACU ORDER PRN IV SEVERE PAIN 7-10; Start 04/18/19 at 13:30; Stop 04/18/19 at 19:00 Oxycodone/ Acetaminophen (Percocet (5/ 325)) 1 tab PACU ORDER PRN PO .PAIN 1-5; Start 04/18/19 at 13:30; Stop 04/18/19 at 19:00 Oxycodone/ Acetaminophen (Percocet (5/ 325)) 2 tab PACU ORDER PRN PO .PAIN 6-10; Start 04/18/19 at 13:30; Stop 04/18/19 at 19:00 Ondansetron HCl (Zofran Inj) 4 mg PACU ORDER PRN IV NAUSEA/VOMITING Last administered on 04/18/19at 14:00; Admin Dose 4 MG; Start 04/18/19 at 13:30; Stop 04/18/19 at 19:00 Lamotrigine (Lamictal) 200 mg DAILY PO ; Start 04/19/19 at 09:00 HUNG MILLER MD Apr 18, 2019 18:43
[2019-04-18] MEDS: ONDANSETRON 4 MG INJ IV PRN (19:26)
[2019-04-18] MEDS: GABAPENTIN 300 MG CAP PO SCH (20:31)
[2019-04-19 00:57] VITALS: BP 96/56; PULSE 68; RESP 18
[2019-04-19] MEDS: oxyCODONE 5 MG TAB PO PRN ×5 (02:08→21:27)
[2019-04-19] MEDS: LACTATED RINGER'S 1,000 ML IV SCH (02:11)
[2019-04-19] MEDS: HYDROmorphONE 1 MG/ML SYG IV PRN ×3 (04:58→13:39)
[2019-04-19] MEDS: ACETAMINOPHEN 500 MG TAB PO SCH ×3 (05:56→22:31)
[2019-04-19] MEDS: PANTOPRAZOLE (EC) 40 MG TAB PO SCH (05:56)
[2019-04-19] MEDS: CEFAZOLIN 2 GM/50 ML (PMX) 50 ML IVPB SCH (05:57)
[2019-04-19 08:03] VITALS: BP 123/74; PULSE 78; RESP 18
[2019-04-19] MEDS: DOCUSATE SODIUM 100 MG CAP PO SCH ×2 (08:07→20:37)
[2019-04-19] MEDS: ASPIRIN (EC) 81 MG TAB PO SCH ×2 (08:07→20:37)
[2019-04-19] MEDS: LAMOTRIGINE 100 MG TAB PO SCH (08:08)
--- NOTE | 2019-04-19 08:20 | PN ---
Date/Time of Note Date/Time of Note DATE: 04/19/19 TIME: 08:19 Assessment/Plan Lines/Catheters IV Catheter Type (from Nrsg): Saline Lock [place] in Place (from Nrsg): Yes Assessment/Plan Chief Complaint/Hosp Course POD#1 s/p revision left RINKU -Post op H&H stable -PT/OT. Posterior Hip Precautions -Joints pain control protocol -DVT prophylaxis: SCD's, aspirin 81 mg twice daily x6 weeks -Weight bearing status: as tolerated -Abx: 24h vanc/ancef -Diet: ADAT -[place]: Discontinued today -Discharge planning consult Planned Discharge Date: Today versus tomorrow Discharge to home with home health and home physical therapy Subjective 24 Hr Interval Summary Patient doing well No acute events overnight Pain is moderately well controlled Exam/Review of Systems Vital Signs Vitals Vital Signs Date Temp Pulse Resp B/P (MAP) Pulse Ox O2 O2 Flow FiO2 Time Delivery Rate 04/19/19 97.7 78 18 123/74 96 Room Air 08:03 (90) Intake and Output 04/18/19 04/18/19 04/19/19 1515:00 23:00 07:00 IntakeIntake Total 3250 ml 390 ml 1370 ml OutputOutput Total 900 ml 1700 ml BalanceBalance 2350 ml 390 ml -330 ml Exam Free Text/Dictation Left lower extremity: Dressing: clean, dry, and intact, no erythema Sensation intact to light touch in a sural, saphenous, deep peroneal, superficial peroneal, medial and lateral plantar nerve distribution. Motor is intact, patient able to dorsiflex and plantarflex ankle and extend and flex great toe. Dorsalis Pedis pulse +2, Brisk capillary refill. Compartments are so ft. Calves non-tender to palpation bilaterally. Results Result Diagram: 04/19/19 0454 04/19/19 0454 ZHANNA PATINO MD Apr 19, 2019 08:20
[2019-04-19] MEDS: ONDANSETRON 4 MG INJ IV PRN (08:39)
[2019-04-19] MEDS ORDERED: ONDANSETRON 4 MG INJ IV PRN (13:00)
--- NOTE | 2019-04-19 14:39 | CONS ---
Assessment/Plan Assessment/Plan Problems: (1) Insomnia Status: Acute Comment: Zolpidem 5 mg prn (2) Bipolar 2 disorder Status: Chronic Comment: Cont. lamotrigine (3) Aftercare following left hip joint replacement surgery Status: Acute Comment: Doing well POD#1. Pain control only fair. Cont. work w/ PT. Likely d/c home tomorrow assuming pain control improved. Consultation Date/Type/Reason Admit Date/Time Apr 18, 2019 at 05:32 Initial Consult Date 04/18/19 Type of Consult Medicine Reason for Consultation Medical management Requesting Provider: ZHANNA PATINO MD Date/Time of Note DATE: 04/19/19 TIME: 14:34 24 HR Interval Summary Constitutional: no complaints, improved Detailed Summary Respiratory: no complaints Cardiovascular: no complaints Gastrointestinal: no complaints Genitourinary: no complaints Musculoskeletal: bone/joint pain (L hip; still in pain but able to ambulate w/ PT. Hoping pain will be less tomorrow so he will feel comfortable to go home) Neurologic: no complaints Exam/Review of Systems Exam Vitals VS - Last 72 Hours, by Label Date Temp Pulse Resp B/P (MAP) Pulse Ox O2 O2 Flow FiO2 Time Delivery Rate 04/19/19 97.7 78 18 123/74 96 Room Air 08:03 (90) 04/19/19 98.0 06:27 04/19/19 98.2 05:56 04/19/19 98.3 68 18 96/56 (69) 99 00:57 04/18/19 98.2 22:00 04/18/19 98.0 80 18 116/72 98 Room Air 19:30 (87) 04/18/19 91 18 120/56 96 Room Air 18:00 (77) 04/18/19 77 18 118/64 96 Room Air 17:00 (82) 04/18/19 65 18 121/67 96 Room Air 16:30 (85) 04/18/19 87 18 115/65 96 Room Air 16:00 (82) 04/18/19 73 18 112/61 96 Room Air 15:45 (78) 04/18/19 80 18 119/60 96 Room Air 15:30 (79) 04/18/19 70 18 109/60 96 Room Air 15:15 (76) 04/18/19 98.0 86 18 104/60 97 Room Air 15:00 (75) 04/18/19 70 16 101/58 96 Room Air 14:44 (72) 04/18/19 70 13 109/54 97 Room Air 14:39 (72) 04/18/19 70 16 112/63 97 Room Air 14:34 (79) 04/18/19 72 13 116/58 96 Room Air 14:29 (77) 04/18/19 72 16 102/61 96 Room Air 14:24 (75) 04/18/19 74 14 109/63 95 Room Air 14:19 (78) 04/18/19 72 15 112/63 95 Room Air 14:04 (79) 04/18/19 80 21 113/66 97 Room Air 13:59 (82) 04/18/19 84 20 111/71 97 Room Air 13:54 (84) 04/18/19 86 20 133/78 98 Room Air 13:44 (96) 04/18/19 82 13 115/74 97 Room Air 13:39 (88) 04/18/19 88 19 119/67 98 Room Air 13:34 (84) 04/18/19 88 17 128/74 97 Room Air 13:29 (92) 04/18/19 98.0 13:27 04/18/19 86 17 121/84 96 Room Air 13:24 (96) 04/18/19 92 20 123/78 98 Room Air 13:19 (93) 04/18/19 98.0 92 18 119/76 98 Room Air 13:12 (90) 04/18/19 98.3 69 18 123/79 99 Room Air 06:44 (94) Vital Signs Date Temp Pulse Resp B/P (MAP) Pulse Ox O2 O2 Flow FiO2 Time Delivery Rate 04/19/19 97.7 78 18 123/74 96 Room Air 08:03 (90) Intake and Output 04/18/19 04/18/19 04/19/19 1515:00 23:00 07:00 IntakeIntake Total 3250 ml 390 ml 1370 ml OutputOutput Total 900 ml 1700 ml BalanceBalance 2350 ml 390 ml -330 ml Constitutional: alert, oriented, well developed Psych: no complaints, nl mood/affect Respiratory: clear to auscultation, normal air movement Cardiovascular: regular rate and rhythm, nl pulses; No edema, No murmurs/extra sounds, No rub Gastrointestinal: soft, nl liver, spleen, non-tender, bowel sounds; No mass, No rebound or guarding Musculoskeletal: nl extremities to inspection Extremities: normal pulses; No cyanosis, No clubbing, No edema Neurological: [employer] II-XII intact, nl mental status, nl speech, nl strength Results Result Diagram: 04/19/19 0454 04/19/19 0454 Results 24hrs Laboratory Tests Test 04/19/19 04:54 04/19/19 05:00 04/19/19 08:12 White Blood Count 8.0 Red Blood Count 3.11 L Hemoglobin 9.5 L Hematocrit 27.4 L Mean Corpuscular Volume 88.1 Mean Corpuscular Hemoglobin 30.5 Mean Corpuscular 34.7 Hemoglobin Concent Red Cell Distribution Width 13.2 Platelet Count 157 Mean Platelet Volume 12.1 H Immature Granulocytes % 0.400 Neutrophils % 71.3 Lymphocytes % 16.3 Monocytes % 11.5 H Eosinophils % 0.4 Basophils % 0.1 Nucleated Red Blood Cells % 0.0 Immature Granulocytes # 0.030 Neutrophils # 5.7 Lymphocytes # 1.3 Monocytes # 0.9 Eosinophils # 0.0 Basophils # 0.0 Nucleated Red Blood Cells # 0.0 Prothrombin Time 13.5 Prothrombin Time Ratio 1.1 INR International 1.02 Normalized Ratio Sodium Level 136 Potassium Level 4.2 Chloride Level 103 Carbon Dioxide Level 28 Anion Gap 5 Blood Urea Nitrogen 16 Creatinine 0.98 Est Glomerular Filtrat > 60 Rate mL/min Glucose Level 101 Calcium Level 8.7 Urine Color YELLOW Urine Clarity CLEAR Urine pH 6.0 Urine Specific [place] 1.020 Urine Ketones NEGATIVE Urine Nitrite NEGATIVE Urine Bilirubin NEGATIVE Urine Urobilinogen NEGATIVE Urine Leukocyte Esterase NEGATIVE Urine Hemoglobin NEGATIVE Urine Glucose NEGATIVE Urine Total Protein NEGATIVE Lab Scanned Report REFERENCE LAB Medications Medication Current Medications Lactated Ringer's 1,000 ml @ 80 mls/hr [id number] IV Last administered on 04/19/19at 02:11; Admin Dose 80 MLS/HR; Start 04/18/19 at 12:59 Oxycodone HCl (Roxicodone) 15 mg Q4H PRN PO .PAIN Last administered on 04/19/19at 11:28; Admin Dose 15 MG; Start 04/18/19 at 13:00 Oxycodone HCl (Roxicodone) 10 mg Q4H PRN PO .PAIN Last administered on 04/19/19 06:41; Admin Dose 10 MG; Start 04/18/19 at 13:00 Oxycodone HCl (Roxicodone) 5 mg Q4H PRN PO .PAIN; Start 04/18/19 at 13:00 Hydromorphone HCl (Dilaudid) 1 mg Q3H PRN IV .BREAKTHROUGH PAIN Last administered on 04/19/19 13:39; Admin Dose 1 MG; Start 04/18/19 at 13:00 Acetaminophen (Tylenol Tab) 1,000 mg Q8 PO Last administered on 04/19/19 05:56; Admin Dose 1,000 MG; Start 04/18/19 at 14:00 Gabapentin (Neurontin) 300 mg QHS PO Last administered on 04/18/19 20:31; Admin Dose 300 MG; Start 04/18/19 at 21:00 Pantoprazole (Protonix Tab) 40 mg DAILY@06 PO Last administered on 04/19/19 05:56; Admin Dose 40 MG; Start 04/19/19 at 06:00 Docusate Sodium (Colace) 200 mg BID PO Last administered on 04/19/19 08:07; Admin Dose 200 MG; Start 04/19/19 at 09:00; Stop 04/21/19 at 21:01 Simethicone (Mylicon) 80 mg TID PRN PO .GAS; Start 04/18/19 at 13:00 Senna/Docusate Sodium (Senokot-S) 2 tab BID PRN PO .CONSTIPATION; Start 04/18/19 at 13:00 Magnesium Hydroxide (Milk Of Mag) 30 ml HS PRN PO .CONSTIPATION; Start 04/18/19 at 13:00 Bisacodyl (Dulcolax Supp) 10 mg DAILY PRN [place] .CONSTIPATION; Start 04/18/19 at 13:00 Sodium Biphosphate/ Sodium Phosphate (Fleet Enema) 133 ml DAILY PRN [place] .CONSTIPATION; Start 04/18/19 at 13:00 Diphenhydramine HCl (Benadryl) 25 mg Q4H PRN IV .ITCHING; Start 04/18/19 at 13:00 Naloxone HCl (Narcan) 0.2 mg Q2M PRN IV .RESP RATE; Start 04/18/19 at 13:00 IV Flush (NS 3 ml) 3 ml per protocol IV ; Start 04/18/19 at 13:00 Bethanechol Chloride (Urecholine) 25 mg URINARY CATH D/C PRN PO UNABLE TO VOID Last administered on 04/19/19 05:57; Admin Dose 25 MG; Start 04/18/19 at 13:00 Aspirin (Halfprin) 81 mg BID PO Last administered on 04/19/19 08:07; Admin Dose 81 MG; Start 04/19/19 at 09:00 Lamotrigine (Lamictal) 200 mg DAILY PO Last administered on 04/19/19 08:08; Admin Dose 200 MG; Start 04/19/19 at 09:00 Ondansetron HCl (Zofran Inj) 4 mg Q4H PRN IV NAUSEA/VOMITING Last administered on 04/19/19 08:39; Admin Dose 4 MG; Start 04/18/19 at 19:30 SIA MISHRA MD Apr 19, 2019 14:39
[2019-04-19] MEDS ORDERED: ZOLPIDEM 5 MG TAB PO PRN (15:00)
[2019-04-19 15:38] VITALS: BP 112/53; PULSE 77; RESP 19
[2019-04-19] MEDS: GABAPENTIN 300 MG CAP PO SCH (20:37)
[2019-04-19 21:04] VITALS: BP 103/63; PULSE 74; RESP 18
[2019-04-20] MEDS: oxyCODONE 5 MG TAB PO PRN ×4 (02:06→14:14)
[2019-04-20 02:30] VITALS: BP 113/56; PULSE 94; RESP 19
[2019-04-20] MEDS: PANTOPRAZOLE (EC) 40 MG TAB PO SCH (06:22)
[2019-04-20] MEDS: ACETAMINOPHEN 500 MG TAB PO SCH ×2 (06:23→14:00)
[2019-04-20 08:16] VITALS: BP 119/73; PULSE 79; RESP 19
[2019-04-20] MEDS: ASPIRIN (EC) 81 MG TAB PO SCH (09:06)
[2019-04-20] MEDS: LAMOTRIGINE 100 MG TAB PO SCH (09:06)
[2019-04-20] MEDS: DOCUSATE SODIUM 100 MG CAP PO SCH (09:06)
--- NOTE | 2019-04-20 12:59 | PN ---
Date/Time of Note Date/Time of Note DATE: 04/20/19 TIME: 12:58 Assessment/Plan Lines/Catheters IV Catheter Type (from Nrsg): Saline Lock [place] in Place (from Nrsg): No Assessment/Plan Chief Complaint/Hosp Course POD#2 s/p revision left RINKU. Patient has been cleared by physical therapy. He is medically stable for discharge. His pain is well controlled with pain medication. He is able to get to the bathroom. He is tolerating his diet. -Post op H&H stable -PT/OT. Posterior Hip Precautions -Joints pain control protocol -DVT prophylaxis: SCD's, aspirin 81 mg twice daily x6 weeks -Weight bearing status: as tolerated -Abx: 24h vanc/ancef -Diet: ADAT -Discharge planning consult Planned Discharge Date: Today Discharge to home with home health and home physical therapy Follow-up postoperatively as scheduled. Subjective 24 Hr Interval Summary Patient doing well No acute events overnight Pain is well controlled Exam/Review of Systems Vital Signs Vitals Vital Signs Date Temp Pulse Resp B/P (MAP) Pulse Ox O2 O2 Flow FiO2 Time Delivery Rate 04/20/19 97.0 79 19 119/73 97 Room Air 08:16 (88) Intake and Output 04/19/19 04/19/19 04/20/19 1414:59 22:59 06:59 IntakeIntake Total 360 ml 1300 ml 120 ml OutputOutput Total 300 ml 750 ml 900 ml BalanceBalance 60 ml 550 ml -780 ml Exam Free Text/Dictation Left lower extremity: Dressing: clean, dry, and intact, no erythema Sensation intact to light touch in a sural, saphenous, deep peroneal, superficial peroneal, medial and lateral plantar nerve distribution. Motor is intact, patient able to dorsiflex and plantarflex ankle and extend and flex great toe. Dorsalis Pedis pulse +2, Brisk capillary refill. Compartments are soft. Calves non-tender to palpation bilaterally. Results Result Diagram: 04/20/19 0446 04/20/19 0446 ZHANNA PATINO MD Apr 20, 2019 12:59
[2019-04-20] MEDS ORDERED: GABA300C16 PO (13:00)
[2019-04-20] MEDS ORDERED: OXYC-481 PO (13:00)
[2019-04-20] MEDS ORDERED: Acetaminophen PO (13:00)
[2019-04-20] MEDS ORDERED: ASPI-1044 PO (13:00)
--- NOTE | 2019-04-20 13:01 | DS ---
Date/Time of Note Date/Time of Note DATE: 04/20/19 TIME: 13:01 Discharge Summary Admission/Discharge Info Admit Date/Time Apr 18, 2019 at 05:32 Discharge Date/Time Patient Condition: Good Hospital Course POD#2 s/p revision left RINKU for aseptic loosening of the femoral component. Patient has been cleared by physical therapy. He is medically stable for discharge. His pain is well controlled with pain medication. He is able to get to the bathroom. He is tolerating his diet. -Post op H&H stable -PT/OT. Posterior Hip Precautions -Joints pain control protocol -DVT prophylaxis: SCD's, aspirin 81 mg twice daily x6 weeks -Weight bearing status: as tolerated -Abx: 24h vanc/ancef -Diet: ADAT -Discharge planning consult Planned Discharge Date: Today Discharge to home with home health and home physical therapy Follow-up postoperatively as scheduled. Home Meds Reported Medications Lamotrigine* (Lamictal*) 100 Mg Tablet, 200 MG PO DAILY, TAB 10/03/15 Discontinued Scripts Aspirin* (Ecotrin*) 325 Mg Tabec, 325 MG PO BID for 45 Days Prov:LUISELIZABETH 10/07/15 Primary Care Provider Zhanna Romano MD Time spent on discharge: < 30 minutes Pending Labs Laboratory Tests Test 04/20/19 04:46 White Blood Count 5.6 10^3/ul (4.8-10.8) Red Blood Count 2.85 10^6/ul (4.70-6.10) Hemoglobin 8.9 g/dl (14.0-18.0) Hematocrit 25.7 % (42.0-52.0) Mean Corpuscular Volume 90.2 fl (82.0-101.0) Mean Corpuscular Hemoglobin 31.2 pg (29.0-33.0) Mean Corpuscular Hemoglobin Concent 34.6 g/dl (32.0-37.0) Red Cell Distribution Width 13.5 % (11.5-14.5) Platelet Count 134 10^3/UL (140-415) Mean Platelet Volume 12.7 fl (7.4-10.4) Immature Granulocytes % 0.400 % (0.001-0.429) Neutrophils % 66.1 % (39.0-77.0) Lymphocytes % 23.2 % (15.0-51.0) Monocytes % 9.4 % (0.0-11.0) Eosinophils % 0.7 % (0.0-7.0) Basophils % 0.2 % (0.0-2.0) Nucleated Red Blood Cells % 0.0 /100WBC (0.0-0.0) Immature Granulocytes # 0.020 10^3/ul (0.0-0.031) Neutrophils # 3.7 10^3/ul (1.6-7.5) Lymphocytes # 1.3 10^3/ul (0.8-2.9) Monocytes # 0.5 10^3/ul (0.3-0.9) Eosinophils # 0.0 10^3/ul (0.0-0.5) Basophils # 0.0 10^3/ul (0.0-0.1) Nucleated Red Blood Cells # 0.0 10^3/ul (0.0-0.0) Prothrombin Time 13.0 Sec (11.9-14.9) Prothrombin Time Ratio 1.0 INR International Normalized Ratio 0.97 Sodium Level 139 mmol/L (135-144) Potassium Level 4.0 mmol/L (3.5-5.1) Chloride Level 103 mmol/L (97-110) Carbon Dioxide Level 30 mmol/L (21-31) Anion Gap 6 (5-13) Blood Urea Nitrogen 20 mg/dl (7-20) Creatinine 1.07 mg/dl (0.61-1.24) Est Glomerular Filtrat Rate mL/min > 60 mL/min (>60) Glucose Level 84 mg/dl (70-220) Calcium Level 8.6 mg/dl (8.4-10.2) ZHANNA ROMANO MD Apr 20, 2019 13:01
--- NOTE | 2019-04-20 13:42 | CONS ---
Assessment/Plan Assessment/Plan Problems: (1) Bipolar 2 disorder Status: Chronic Comment: Cont. lamictal daily (2) Aftercare following left hip joint replacement surgery Status: Acute Comment: Doing excellent POD#2. Pain managed. Ok for d/c home from med standpoint. Consultation Date/Type/Reason Admit Date/Time Apr 18, 2019 at 05:32 Initial Consult Date 04/18/19 Type of Consult Medicine Reason for Consultation Medical Management Requesting Provider: ZHANNA PATINO MD Date/Time of Note DATE: 04/20/19 TIME: 13:40 24 HR Interval Summary Constitutional: no complaints, improved (feeling much better. Pain managed. Ambulating. Cleared by PT and feels he can go home. ) Detailed Summary Respiratory: no complaints Cardiovascular: no complaints Gastrointestinal: no complaints Genitourinary: no complaints Musculoskeletal: bone/joint pain (L hip but pain managed) Neurologic: no complaints Exam/Review of Systems Exam Vitals VS - Last 72 Hours, by Label Date Temp Pulse Resp B/P (MAP) Pulse Ox O2 O2 Flow FiO2 Time Delivery Rate 04/20/19 97.0 79 19 119/73 97 Room Air 08:16 (88) 04/20/19 98.1 94 19 113/56 95 02:30 (75) 04/19/19 97.7 74 18 103/63 96 Room Air 21:04 (76) 04/19/19 97.6 77 19 112/53 97 Room Air 15:38 (72) 04/19/19 36.5 15:13 04/19/19 97.7 78 18 123/74 96 Room Air 08:03 (90) 04/19/19 98.0 06:27 04/19/19 98.2 05:56 04/19/19 98.3 68 18 96/56 (69) 99 00:57 04/18/19 98.2 22:00 04/18/19 98.0 80 18 116/72 98 Room Air 19:30 (87) 04/18/19 91 18 120/56 96 Room Air 18:00 (77) 04/18/19 77 18 118/64 96 Room Air 17:00 (82) 04/18/19 65 18 121/67 96 Room Air 16:30 (85) 04/18/19 87 18 115/65 96 Room Air 16:00 (82) 04/18/19 73 18 112/61 96 Room Air 15:45 (78) 04/18/19 80 18 119/60 96 Room Air 15:30 (79) 04/18/19 70 18 109/60 96 Room Air 15:15 (76) 04/18/19 98.0 86 18 104/60 97 Room Air 15:00 (75) 04/18/19 70 16 101/58 96 Room Air 14:44 (72) 04/18/19 70 13 109/54 97 Room Air 14:39 (72) 04/18/19 70 16 112/63 97 Room Air 14:34 (79) 04/18/19 72 13 116/58 96 Room Air 14:29 (77) 04/18/19 72 16 102/61 96 Room Air 14:24 (75) 04/18/19 74 14 109/63 95 Room Air 14:19 (78) 04/18/19 72 15 112/63 95 Room Air 14:04 (79) 04/18/19 80 21 113/66 97 Room Air 13:59 (82) 04/18/19 84 20 111/71 97 Room Air 13:54 (84) 04/18/19 86 20 133/78 98 Room Air 13:44 (96) 04/18/19 82 13 115/74 97 Room Air 13:39 (88) 04/18/19 88 19 119/67 98 Room Air 13:34 (84) 04/18/19 88 17 128/74 97 Room Air 13:29 (92) 04/18/19 98.0 13:27 04/18/19 86 17 121/84 96 Room Air 13:24 (96) 04/18/19 92 20 123/78 98 Room Air 13:19 (93) 04/18/19 98.0 92 18 119/76 98 Room Air 13:12 (90) 04/18/19 98.3 69 18 123/79 99 Room Air 06:44 (94) Vital Signs Date Temp Pulse Resp B/P (MAP) Pulse Ox O2 O2 Flow FiO2 Time Delivery Rate 04/20/19 97.0 79 19 119/73 97 Room Air 08:16 (88) Intake and Output 04/19/19 04/19/19 04/20/19 1515:00 23:00 07:00 IntakeIntake Total 360 ml 1300 ml 120 ml OutputOutput Total 300 ml 750 ml 900 ml BalanceBalance 60 ml 550 ml -780 ml Constitutional: alert, oriented, well developed Psych: no complaints, nl mood/affect Respiratory: clear to auscultation, normal air movement Cardiovascular: regular rate and rhythm, nl pulses; No edema, No murmurs/extra sounds, No rub Gastrointestinal: soft, nl liver, spleen, non-tender, bowel sounds; No mass, No rebound or guarding Musculoskeletal: nl extremities to inspection Extremities: normal pulses; No cyanosis, No clubbing, No edema Neurological: [employer] II-XII intact, nl mental status, nl speech, nl strength Results Result Diagram: 04/20/19 0446 04/20/19 0446 Results 24hrs Laboratory Tests Test 04/20/19 04:46 White Blood Count 5.6 # Red Blood Count 2.85 L Hemoglobin 8.9 L Hematocrit 25.7 L Mean Corpuscular Volume 90.2 Mean Corpuscular Hemoglobin 31.2 Mean Corpuscular Hemoglobin Concent 34.6 Red Cell Distribution Width 13.5 Platelet Count 134 L Mean Platelet Volume 12.7 H Immature Granulocytes % 0.400 Neutrophils % 66.1 Lymphocytes % 23.2 Monocytes % 9.4 Eosinophils % 0.7 Basophils % 0.2 Nucleated Red Blood Cells % 0.0 Immature Granulocytes # 0.020 Neutrophils # 3.7 Lymphocytes # 1.3 Monocytes # 0.5 Eosinophils # 0.0 Basophils # 0.0 Nucleated Red Blood Cells # 0.0 Prothrombin Time 13.0 Prothrombin Time Ratio 1.0 INR International Normalized Ratio 0.97 Sodium Level 139 Potassium Level 4.0 Chloride Level 103 Carbon Dioxide Level 30 Anion Gap 6 Blood Urea Nitrogen 20 Creatinine 1.07 Est Glomerular Filtrat Rate mL/min > 60 Glucose Level 84 Calcium Level 8.6 Medications Medication Current Medications Oxycodone HCl (Roxicodone) 15 mg Q4H PRN PO .PAIN Last administered on 04/20/19at 10:31; Admin Dose 15 MG; Start 04/18/19 at 13:00 Oxycodone HCl (Roxicodone) 10 mg Q4H PRN PO .PAIN Last administered on 04/19/19at 06:41; Admin Dose 10 MG; Start 04/18/19 at 13:00 Oxycodone HCl (Roxicodone) 5 mg Q4H PRN PO .PAIN; Start 04/18/19 at 13:00 Hydromorphone HCl (Dilaudid) 1 mg Q3H PRN IV .BREAKTHROUGH PAIN Last administered on 04/19/19 13:39; Admin Dose 1 MG; Start 04/18/19 at 13:00 Acetaminophen (Tylenol Tab) 1,000 mg Q8 PO Last administered on 04/20/19 06:23; Admin Dose 1,000 MG; Start 04/18/19 at 14:00 Gabapentin (Neurontin) 300 mg QHS PO Last administered on 04/19/19 20:37; Admin Dose 300 MG; Start 04/18/19 at 21:00 Pantoprazole (Protonix Tab) 40 mg DAILY@06 PO Last administered on 04/20/19 06:22; Admin Dose 40 MG; Start 04/19/19 at 06:00 Docusate Sodium (Colace) 200 mg BID PO Last administered on 04/20/19 09:06; Admin Dose 200 MG; Start 04/19/19 at 09:00; Stop 04/21/19 at 21:01 Simethicone (Mylicon) 80 mg TID PRN PO .GAS; Start 04/18/19 at 13:00 Senna/Docusate Sodium (Senokot-S) 2 tab BID PRN PO .CONSTIPATION; Start 04/18/19 at 13:00 Magnesium Hydroxide (Milk Of Mag) 30 ml HS PRN PO .CONSTIPATION; Start 04/18/19 at 13:00 Bisacodyl (Dulcolax Supp) 10 mg DAILY PRN [place] .CONSTIPATION; Start 04/18/19 at 13:00 Sodium Biphosphate/ Sodium Phosphate (Fleet Enema) 133 ml DAILY PRN [place] .CONSTIPATION; Start 04/18/19 at 13:00 Diphenhydramine HCl (Benadryl) 25 mg Q4H PRN IV .ITCHING; Start 04/18/19 at 13:00 Naloxone HCl (Narcan) 0.2 mg Q2M PRN IV .RESP RATE; Start 04/18/19 at 13:00 IV Flush (NS 3 ml) 3 ml per protocol IV ; Start 04/18/19 at 13:00 Bethanechol Chloride (Urecholine) 25 mg URINARY CATH D/C PRN PO UNABLE TO VOID Last administered on 04/19/19 05:57; Admin Dose 25 MG; Start 04/18/19 at 13:00 Aspirin (Halfprin) 81 mg BID PO Last administered on 04/20/19 09:06; Admin Dose 81 MG; Start 04/19/19 at 09:00 Lamotrigine (Lamictal) 200 mg DAILY PO Last administered on 04/20/19 09:06; Admin Dose 200 MG; Start 04/19/19 at 09:00 Ondansetron HCl (Zofran Inj) 4 mg Q4H PRN IV NAUSEA/VOMITING Last administered on 04/19/19 08:39; Admin Dose 4 MG; Start 04/18/19 at 19:30 Zolpidem Tartrate (Ambien) 5 mg HS PRN PO INSOMNIA Last administered on 04/19/19 22:31; Admin Dose 5 MG; Start 04/19/19 at 15:00 SIA MISHRA MD Apr 20, 2019 13:42
== END 2019-04-20 15:30 | disposition home health service (06) | DRG 467 ==
LOC: REC 04-18 05:32 → MS1 04-18 14:44
PROVIDERS: ADMIT Orthopaedic Surgery Adult Reconstructive Orthopaedic Surgery; ATTEND Orthopaedic Surgery Adult Reconstructive Orthopaedic Surgery
PROC: 0SPB0JZ Removal of Synthetic Substitute from Left Hip Joint, Open Approach (ICD-10-PCS; 2019-04-18)
PROC: 0SRB0JZ Replacement of Left Hip Joint with Synthetic Substitute, Open Approach (ICD-10-PCS; principal; 2019-04-18 07:30)
DX: T84.031A Mechanical loosening of internal left hip prosthetic joint, initial encounter (principal); F31.81 Bipolar II disorder; K64.9 Unspecified hemorrhoids; G47.00 Insomnia, unspecified
CPT/HCPCS: 72170; 73500; 80048; 81003; 85025; 85610; 86850; 86900; 86901; 86920; 87070; 87075; 87081; 87086; 87102; 88300; 89060; 97110; 97116; 97162; 97165; 97530; C1713; C1776; J0171; J0690; J1100; J1170; J1885; J2250; J2405; J2795; J3010; J3370; J7120

== ENCOUNTER → 2019-04-17 | Outpatient (CLI) | payer BC ==
[~2019-04-17] MED LIST changes: -ACETAMINOPHEN 500 MG TAB PO ONE; +ASPI-1044 PO; +Acetaminophen PO; -CEFAZOLIN 2 GM/50 ML (PMX) 50 ML IVPB ONE; -CELECOXIB 200 MG CAP PO ONE; +GABA300C16 PO; -GABAPENTIN 300 MG CAP PO ONE; -LACTATED RINGER'S 1,000 ML IV SCH; -LANSOPRAZOLE 30 MG CAP PO ONE; -ONDANSETRON 4 MG INJ IV ONE; +OXYC-481 PO; -TRANEXAMIC ACID 1GM/100ML(PMX) 100 ML AT CLOSING IVPB ONE; -TRANEXAMIC ACID 1GM/100ML(PMX) 100 ML PRE-OP IVPB ONE
--- NOTE | 2019-04-17 12:36 | CONS ---
Consult Date/Type/Reason Admit Date/Time Initial Consult Date Date/Time of Note DATE: 04/17/19 TIME: 12:32 Subjective 43-year-old male follows up today for preoperative appointment for left total hip arthroplasty revision. 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 His symptoms have increased in intensity but has not changed in location or characteristic. Denies numbness and tingling. Denies fevers and chills. Surgery was moved the delayed secondary to anemia found on his preoperative labs. There was possible concern for a slow bleed given his decrease in hemoglobin from previous labs. His PCP recommended that the surgery be delayed until further work-up completed. I did agree with this. Work-up has been completed. His hemoglobin is now 13.3 and is now cleared for surgery. Objective Vitals Weight: 143 pounds Height: 5 foot 3 inches BMI: 25.3 Temperature: 98.4 Heart Rate: 65 Blood Pressure: 137/95 Respiratory Rate: 12 Exam Objective Vitals Weight: 140 pounds Height: 5 foot 3 inches Temperature: 90.6 Heart Rate: 70 Blood Pressure: 140/73 Respiratory Rate: 12 Exam General: Awake, alert, in no acute distress, pleasant and cooperative Heart: regular rhythm Lungs: breathing comfortably, no tachypnea or dyspnea Musculoskeletal: Well developed male in no apparent distress. Gait demonstrates antalgic components and no short leg component. Standing, the pelvis is level and supine there is no true leg length discrepancy. No tenderness to palpation over the trochanteric bursa or IT band. ----- Range of motion: Flexion: 120 Extension: 0 Internal rotation: 20 External rotation: 45 Abduction: 45 Adduction: 10 ----- Sitting there is no pelvic obliquity. Pain at the extremes of motion of the affected hip. Skin was intact throughout both lower extremities. Sensation intact to light touch in a sural, saphenous, deep peroneal, superficial peroneal, medial and lateral plantar nerve distribution. Neurovascular exam showed 5/5 strength in the abductors, quads, EHL/tibialis anterior/gastroc. Normal and symmetrical pulses were palpated in both the dorsalis pedis and posterior tibial arteries. There is no sign of venous stasis. Results/Medications Home Meds Active Scripts Aspirin* (Ecotrin*) 325 Mg Tabec, 325 MG PO BID for 45 Days Prov:ELIZABETH LUIS 10/07/15 Reported Medications Lamotrigine* (Lamictal*) 100 Mg Tablet, 200 MG PO DAILY, TAB 10/03/15 Assessment/Plan Hospital Course (Demo Recall) The patient has aseptic loosening of the femoral component of the left total hip arthroplasty. Significant amount of time was spent discussing revision surgery including increased risk of infection, instability, neurovascular injury, fracture, and other complications. Was also discussed that he will likely need an extended greater trochanteric osteotomy to remove the femoral prosthesis. Discussed that this will likely change his weightbearing status postoperatively. Medical Clearance: yes ----- A lengthy discussion was held, where the patient was told that if and when the symptoms are intolerable, elective revision total hip replacement should be considered. The operative procedure was explained using diagrams and/or three-dimensional models. The rehabilitation, the potential risks, benefits and alternatives were discuss ed at length. Specific risks discussed included but were not limited to excessive blood loss and the need for transfusion and therefore the risk of transmissible disease or transfusion reaction, deep infection and the potential need for repetitive debridements, implant removal, long-term antibiotic therapy, possibly requiring deep venous access, leg-length discrepancy, dislocation, possibly recurrent, with the need for closed versus open reduction, bracing, femoral or acetabular fracture and the need for further surgery for fixation, neurovascular injury with temporary or permanent numbness, tingling, weakness or paralysis, deep venous thrombosis, pulmonary embolism and , persistent pain, weakness, or limp, late aseptic loosening and the need for revision, polyethylene wear-induced osteolysis and related problems, and finally, a wide variety of unanticipated medical problems. The opportunity to ask questions and address any concerns was provided. The patient would like to proceed with scheduling. Face to Face Evaluation For Home Health Care: This is to certify that after date of planned surgery patient will be in need of intermittent long-term care, physical therapy and/or occupational therapy as patient will be home bound. This patient is under my care and I have authorized the services on this plan of care and will periodically review the plan. Plan: Left Revision RINKU. If no ETO is needed, will plan on S-ROM. If ETO is needed, Depuy Reclaim VTE risk stratification: Average VTE prophylaxis: ASA 81 mg twice daily x6 weeks Diabetes management: None Pain control: Standard Telemetry: No MRSA: negative SUKUMAR,ZHANNA MD Apr 17, 2019 12:36
== END | disposition home or self-care (01) ==
LOC: HKI 11:23
PROVIDERS: ATTEND Orthopaedic Surgery Adult Reconstructive Orthopaedic Surgery
DX: Z01.818 Encounter for other preprocedural examination (principal)
CPT/HCPCS: G0463